=== PATIENT | female | born 1980 | race Caucasian/White ===

== ENCOUNTER 2020-09-15 09:05 | Day surgery (SDC) | payer OTHER, SELFPAY ==
[2020-09-11 12:58] VITALS: BMI 27.9
--- NOTE | 2020-09-13 15:09 | P.CONAN_ITS ---
Documented by User: Jayna Hauser 09/13/20 15:09 HPI - Anesthesia Eval Consult details Narrative: 39yo F for Upper Endoscopy and Colonoscopy [facility] Past Medical History Medical History GERD (gastroesophageal reflux disease) Surgical History Surgical History Hx of colonoscopy Social History Social History Smoking Status: Unknown if ever smoked Advance Directives: No (n/a) Advance Directives Information Provided: No Advance Directives on File: No Meds Allergies Allergy/AdvReac Type Severity Reaction Status Date / Time No Known Allergies Allergy Unverified 09/11/20 12:52 Home Medications Medication Instructions Recorded Confirmed Type hydrocortisone acetate 25 mg AL BID 09/11/20 09/11/20 History ibuprofen [Advil] 200 mg PO Q6H PRN 09/11/20 09/11/20 History multivitamin 1 cap PO DAILY 09/11/20 09/11/20 History omeprazole magnesium [Prilosec OTC] 20 mg PO DAILY PRN 09/11/20 09/11/20 History Exam Exam Date and Time: September 13, 2020 1509 Height,Weight and Vital Signs: Height 5 ft 4 in Weight 73.936 kg Assessment and Plan Assessment Anesthesia Assessment: Chart Reviewed Documented by User: Misty Abarca 09/15/20 09:45 [facility] Past Medical History Medical History GERD (gastroesophageal reflux disease) Surgical History Surgical History Hx of colonoscopy Social History Social History Smoking Status: Unknown if ever smoked Advance Directives: No (n/a) Advance Directives Information Provided: No Advance Directives on File: No Meds Allergies Allergy/AdvReac Type Severity Reaction Status Date / Time No Known Allergies Allergy Unverified 09/11/20 12:52 Home Medications Medication Instructions Recorded Confirmed Type hydrocortisone acetate 25 mg AL BID 09/11/20 09/11/20 History ibuprofen [Advil] 200 mg PO Q6H PRN 09/11/20 09/11/20 History multivitamin 1 cap PO DAILY 09/11/20 09/11/20 History omeprazole magnesium [Prilosec OTC] 20 mg PO DAILY PRN 09/11/20 09/11/20 History Exam Airway Mallampati Class: II TM Dist: >3cm Neck ROM: Full Loose/Missing/Broken Teeth: No Heart: RRR Lungs: CTA Assessment and Plan Assessment Anesthesia Assessment: Anesthesia Plan Discussed and Chart Reviewed Final Anesthetic Review NPO: Yes ASA Class: I Final Preanesthetic Review: Meds/Allgs Chart Reviewed, Consent Obtained/Reviewed and Anes Risks/Benef Reviewed Patient Risk: Low Procedure Risk: Intermediate Anesthetic Plan Anesthetic Plan: MAC: Disposition: Standard PACU
[2020-09-15 09:26] VITALS: BP 134/86; PULSE 77; RESP 16; TEMP 36.2; O2SAT 98
[2020-09-15 09:30] LABS: UPreg QC Valid YES; Urine Pregnancy NEGATIVE (NEGATIVE)
[2020-09-15] MEDS: Lactated Ringers 1,000 ML 100 ML IVCONT (09:36)
--- NOTE | 2020-09-15 09:47 | MHC.SHP ---
Pre-Procedural Eval Section A The patient is an INPATIENT: No Changes since office visit: No Cold of Flu in the past 2 weeks, No New Medical Problems, No Changes in Medication and No Patient answered all questions The History & Physical has been completed within 30 days and I have reviewed it.: Yes Section B Chief Complaint: Reflux,screening,rectal bleeding Allergies: Allergies Allergy/AdvReac Type Severity Reaction Status Date / Time No Known Allergies Allergy Unverified 09/11/20 12:52 Plan Patient has been examined and remains a candidate for the planned procedure
--- NOTE | 2020-09-15 10:12 | PM.OP ---
Brief Operative Note Date of Service: 09/15/20 Pre-op diagnosis: GERD, rectal bleeding Post-op diagnosis: same Procedure: egd colon Surgeon: Asaf Hilario Anesthesia: MAC Estimated blood loss (mL): 5 Pathology: other (egj, antral biopsies) Condition: stable Disposition: PACU
[2020-09-15 10:18] VITALS: BP 123/96; PULSE 76; RESP 16; TEMP 36.6; O2SAT 98
[2020-09-15 10:35] VITALS: BP 134/81; PULSE 77; RESP 16; TEMP 36.6; O2SAT 97
--- NOTE | 2020-09-15 11:30 | OP_ITS ---
SURGEON: Asaf Hilario MD INDICATIONS: 1. Gastroesophageal reflux disease. 2. Rectal bleeding. PREOPERATIVE DIAGNOSIS: POSTOPERATIVE DIAGNOSIS: PROCEDURE PERFORMED: 1. Upper endoscopy with biopsy. 2. Colonoscopy to the terminal ileum. ESTIMATED BLOOD LOSS: COMPLICATIONS: ANESTHESIA: ASSISTANTS: SPECIMENS: MEDICATIONS: Monitored anesthesia care. DESCRIPTION OF PROCEDURE: History and physical performed. The risks and benefits of the procedure were explained to the patient. Informed consent was obtained. The patient was placed in the left lateral decubitus position. The Olympus video gastroscope was introduced into the esophagus, stomach, and duodenum. Examination was performed and the scope was removed. She tolerated the procedure well and was repositioned for colonoscopy. A digital rectal exam was performed and was found to be normal. The Olympus pediatric video colonoscope was introduced into the rectum and advanced to the cecum without difficulty. The cecum was identified by transillumination, palpation, and identification of ileocecal valve. Examination was performed and the scope was removed. She tolerated both procedures well and was returned to recovery area in stable condition. FINDINGS: UPPER ENDOSCOPY: Esophagus: The esophagus was normal. There was no esophagitis. Biopsies were obtained from the EG junction to rule out Barnes's esophagus. Stomach: Stomach showed no evidence of masses, ulcers, or polyps. There was a small hiatal hernia. Antral biopsies were obtained to evaluate for H pylori. Duodenum: The bulb and second portion were normal. COLONOSCOPY: The terminal ileum was normal. The visualized colonic mucosa was within normal limits without evidence of masses or ulcers. No polyps were identified. The quality of the prep was good. Retroflexed examination showed internal hemorrhoids. There were external hemorrhoids noted on withdrawal of the scope. There was mild sigmoid diverticulosis with a few scattered diverticula in the right colon. IMPRESSION: 1. Gastroesophageal reflux disease. 2. Normal colonoscopy. RECOMMENDATIONS: 1. Follow up the biopsy results. 2. Repeat colonoscopy is recommended in 5 years because of family history. MD HAYDEE Mitchell/GALILEA / [id number]
--- NOTE | 2020-09-15 13:08 | HO.POSTANES ---
Post Anesthesia Evaluation Post Anesthesia Evaluation Vital Signs: Vital Signs Temp Pulse Resp BP Pulse Ox 09/15/20 10:35 97.8 F 77 16 134/81 97 09/15/20 10:18 97.8 F 76 16 123/96 H 98 09/15/20 09:26 97.1 F 77 16 134/86 98 Anesthesia: Monitored Mental Status: Awake Pain Control: Satisfactory Nausea/Vomiting: None Hydration: Adequate Anesthesia-Related Issues: No Anes. Related Issues
== END 2020-09-15 11:20 | disposition home or self-care (01) ==
PROVIDERS: Nurse Practitioner; PCP Nurse Practitioner Family; Visit Provider Internal Medicine Gastroenterology
PROC: (CPT 45378; principal; 2020-09-15 10:20)
DX: Z12.11 Encounter for screening for malignant neoplasm of colon (principal); Z80.0 Family history of malignant neoplasm of digestive organs; K57.30 Diverticulosis of large intestine without perforation or abscess without bleeding; K64.8 Other hemorrhoids; K64.4 Residual hemorrhoidal skin tags; K21.9 Gastro-esophageal reflux disease without esophagitis; K44.9 Diaphragmatic hernia without obstruction or gangrene; Z79.899 Other long term (current) drug therapy
CPT/HCPCS: 45378; 43239; 81025; 88305; 88342

== ENCOUNTER 2022-09-20 07:01 | Outpatient (REF) | payer OTHER, SELFPAY ==
[2022-09-20 07:34] LABS: INTERNATIONAL NORM RATIO 1.1 (0.9-1.1); Prothrombin Time 12.8 SEC (10.0-13.1)
[2022-09-20 07:36] LABS: Partial Thromboplastin Time 34.8 SEC (26.0-36.4)
[2022-09-20 07:39] LABS: Hematocrit 43.1 % (37.0-47.0); Hemoglobin 14.1 g/dl (12.0-16.0); Mean Corpuscular HGB Conc 32.7 g/dl (31.0-35.0); Mean Corpuscular Hemoglobin 31.1 pg (27.0-33.0); Mean Corpuscular Volume 94.9 fL (80.0-98.0); Mean Platelet Volume 10.8 fL (9.4-12.3); Platelet Count 262 X10*3/uL (160-400); Red Blood Count 4.54 X10*6/uL (4.20-5.50); Red Cell Distribution Width 11.7 % (11.0-16.0); White Blood Count 7.3 X10*3/uL (4.8-10.8)
[2022-09-20 08:09] LABS: Alanine Aminotransferase 172 U/L (0-31); Albumin Level 4.4 g/dL (3.5-5.0); Alkaline Phosphatase 51 U/L (39-117); Aspartate Amino Transferase 92 U/L (5-31); Bilirubin Direct 0.3 mg/dL (0.0-0.5); Bilirubin Total 0.8 mg/dL (0.0-1.0); Total Protein 7.2 g/dL (6.5-8.0)
== END 2022-09-20 07:02 | disposition home or self-care (01) ==
LOC: HO.LAB 07:01
PROVIDERS: PCP Family Medicine; Referring Provider Internal Medicine Endocrinology, Diabetes & Metabolism; Visit Provider Internal Medicine Gastroenterology
DX: R79.89 Other specified abnormal findings of blood chemistry (principal)
CPT/HCPCS: 36415; 80076; 85027; 85610; 85730

== ENCOUNTER 2022-09-23 06:59 | Day surgery (SDC) | payer OTHER, SELFPAY ==
--- NOTE | ~2022-09-23 | US_ITS ---
PROCEDURE: ULTRASOUND-GUIDED LIVER BIOPSY CLINICAL INFORMATION: Elevated LFTs. COMPARISON: None TECHNIQUE: Following explaining ultrasound-guided right hepatic lobe liver biopsy procedure, benefits and risk, a written consent was obtained. Patient was placed supine and preliminary ultrasound imaging was obtained through the liver. An intercostal approach along the right axillary line was selected and marked on the skin. The marked area was cleaned and draped in the usual sterile manner with 2% chlorhexidine solution. 1% lidocaine was injected at puncture site. Through a small skin incision a 20-gauge guide needle was advanced into the right hepatic lobe. Coaxially a 20-gauge biopsy gun was administered and a 3-pass biopsy was obtained under sterile ultrasound guidance. Postprocedure needle was removed and complete hemostasis achieved at puncture site. Repeat ultrasound revealed no hemorrhage. Patient tolerated procedure extremely well. Conscious sedation with Versed and fentanyl was administered during the exam and patient monitored for 15 minutes. FINDINGS: On preliminary ultrasound imaging there is mild echogenic liver. No focal lesion seen. The gallbladder is unremarkable. Subcostal ultrasound-guided intercostal right hepatic lobe biopsy performed with a 20-gauge needle. US/US biopsy liver IMPRESSION: Successful ultrasound-guided right hepatic lobe core biopsy performed.
[2022-09-23 07:11] VITALS: BMI 26.6
[2022-09-23] MEDS: Lidocaine HCl 1 % MPF 5 ML VIAL 10 ML SUBCUT (09:02)
[2022-09-23 09:10] VITALS: BP 108/63; PULSE 73; RESP 16; TEMP 36.9; O2SAT 95
[2022-09-23 09:25] VITALS: BP 119/74; PULSE 73; RESP 16; O2SAT 97
--- NOTE | 2022-09-23 09:27 | HE.PHANOTE ---
Went down to CT control room to witness waste. ROSSY Medina pulled versed and fentanyl for the patient, however, pyxis did not ask for waste. I watched Rossy Medina waste 1.5 ml of fentanyl and 1 ml of versed. thanks, herve
[2022-09-23] MEDS: Acetaminophen 325 MG TABLET 650 MG PO (09:28)
[2022-09-23 09:40] VITALS: BP 112/62; PULSE 65; RESP 14; O2SAT 98
[2022-09-23 09:55] VITALS: BP 115/60; PULSE 67; RESP 14; O2SAT 98
[2022-09-23 10:10] VITALS: BP 101/60; PULSE 64; RESP 14; O2SAT 98
[2022-09-23 10:25] VITALS: BP 103/57; PULSE 97; RESP 14; TEMP 37.7; O2SAT 98
== END 2022-09-23 11:02 | disposition home or self-care (01) ==
PROVIDERS: Radiology Diagnostic Radiology; PCP Family Medicine; Visit Provider Radiology Diagnostic Radiology
DX: R79.89 Other specified abnormal findings of blood chemistry (principal); K75.81 Nonalcoholic steatohepatitis (NASH); K21.9 Gastro-esophageal reflux disease without esophagitis; Z79.899 Other long term (current) drug therapy; Z79.1 Long term (current) use of non-steroidal anti-inflammatories (NSAID)
CPT/HCPCS: 47000; 76942; 88307; 88313; 99152; J2250; J3010

== ENCOUNTER 2022-10-11 08:42 | Day surgery (SDC) | payer OTHER, SELFPAY ==
--- NOTE | 2022-10-09 14:35 | HO.ANESPROP2 ---
Documented by User: Jayna Hauser NP 10/09/22 14:36 HPI - Anesthesia Eval Consult details Narrative: 41yo F for Colonoscopy [facility] Past Medical History Medical History Anxiety GERD (gastroesophageal reflux disease) Surgical History Surgical History Hx of colonoscopy Hx of esophagogastroduodenoscopy Social History Social History Patient Tobacco Use Status: Never used Tobacco Use of substances other than those prescribed or required for medical reasons: No Are you DNR?: No Advance Directives: No Advance Directives Information Provided: Yes Meds Allergies Allergy/AdvReac Type Severity Reaction Status Date / Time No Known Allergies Allergy Verified 09/23/22 07:10 Home Medications Medication Instructions Recorded Confirmed Last Taken Type hydrocortisone acetate 25 mg 25 mg LA BID 09/11/20 09/11/20 Unknown History rectal suppository ibuprofen 200 mg tablet (Advil) 200 mg PO Q6H PRN Pain 09/11/20 09/11/20 09/27/22 History multivitamin 1 cap PO DAILY 09/11/20 09/11/20 Unknown History lansoprazole 15 mg capsule,delayed 15 mg PO DAILY 10/10/22 10/10/22 Unknown History release rosuvastatin 5 mg tablet 1 tab PO DAILY 10/11/22 10/11/22 Unknown History Exam Exam Date and Time: October 09, 2022 1435 Pertinent Lab Results Pertinent Lab Results: Laboratory Tests 09/20/22 07:05 WBC 7.3 Hgb 14.1 Hct 43.1 Plt Count 262 Assessment and Plan Assessment Anesthesia Assessment: Chart Reviewed Documented by User: Sha Lezama MD 10/11/22 10:55 [facility] Past Medical History Medical History Anxiety GERD (gastroesophageal reflux disease) Functional capacity: independent ambulation Family History Family history of problems with anesthesia: No Surgical History Surgical History Hx of colonoscopy Hx of esophagogastroduodenoscopy History of Problems with Anesthesia: No Social History Social History Patient Tobacco Use Status: Never used Tobacco Use of substances other than those prescribed or required for medical reasons: No Are you DNR?: No Advance Directives: No Advance Directives Information Provided: Yes Meds Allergies Allergy/AdvReac Type Severity Reaction Status Date / Time No Known Allergies Allergy Verified 09/23/22 07:10 Home Medications Medication Instructions Recorded Confirmed Last Taken Type hydrocortisone acetate 25 mg 25 mg LA BID 09/11/20 09/11/20 Unknown History rectal suppository ibuprofen 200 mg tablet (Advil) 200 mg PO Q6H PRN Pain 09/11/20 09/11/20 09/27/22 History multivitamin 1 cap PO DAILY 09/11/20 09/11/20 Unknown History lansoprazole 15 mg capsule,delayed 15 mg PO DAILY 10/10/22 10/10/22 Unknown History release rosuvastatin 5 mg tablet 1 tab PO DAILY 10/11/22 10/11/22 Unknown History Exam Airway Mallampati Class: III TM Dist: >3cm Neck ROM: Full Loose/Missing/Broken Teeth: Yes Heart: S1,S2 Lungs: b/l breath sounds Assessment and Plan Assessment Anesthesia Assessment: Anesthesia Plan Discussed Final Anesthetic Review Family History of Problems with Anesthesia: No History of Problems with Anesthesia: No NPO: Yes ASA Class: II Final Preanesthetic Review: Meds/Allgs Chart Reviewed, Consent Obtained/Reviewed and Anes Risks/Benef Reviewed Patient Risk: Intermediate Procedure Risk: Intermediate Anesthetic Plan Anesthetic Plan: MAC: Disposition: Standard PACU
[2022-10-11 09:01] VITALS: BMI 26.1
[2022-10-11 09:07] VITALS: BP 128/78; PULSE 95; RESP 18; TEMP 37.1; O2SAT 98
[2022-10-11 09:10] VITALS: BMI 26.1
[2022-10-11 09:15] LABS: UPreg QC Valid YES; Urine Pregnancy NEGATIVE (NEGATIVE)
[2022-10-11] MEDS: Lactated Ringers 1,000 ML 100 ML IVCONT (09:28)
--- NOTE | 2022-10-11 09:54 | MHC.SHP ---
Pre-Procedural Eval Section A Date of Service: 10/11/22 Section B Chief Complaint: screening Details of Present Illness: see H&P no changes Relevant Family History (Specify if Yes): No Relevant Social History: None Present Medications: see Short Stay Collaborative assessment Medical History: No relevant PMH Allergies: Allergies Allergy/AdvReac Type Severity Reaction Status Date / Time No Known Allergies Allergy Verified 09/23/22 07:10 Review of Systems Sugical H&P ROS: Negative: Constitution, Cardiovascular, Respiratory, Neurological, Psychiatric, Hem-Onc, Allergic/Immunologic, Gastrointestinal, Genitourinary, Musculoskeletal, Integumentary, Endocrine and Eyes/Ears/Nose/Throat Exam Surgical H&P Exam: Normal: HEENT, Normal: Heart, Normal: Lungs, Normal: Extremities, Normal: Abdomen, Normal: Skin and Normal: Neurological Plan Diagnosis/Plan: Unchanged I have reviewed the history and physical and performed a pertinent physical examination on my patient. No changes have occurred unless specified.
[2022-10-11 10:29] VITALS: BP 90/46; PULSE 74; RESP 16; TEMP 37.1; O2SAT 100
--- NOTE | 2022-10-11 10:31 | P.BOP_ITS ---
Brief Operative Note Date of Service: 10/11/22 Pre-op diagnosis: screening Post-op diagnosis: same Surgeon: Asaf Hilario Anesthesia: MAC Was an Commodity Director used for this Procedure?: No Estimated blood loss (mL): 2 Pathology: other Condition: stable Disposition: PACU
[2022-10-11 10:44] VITALS: BP 105/67; PULSE 75; RESP 18; O2SAT 99
[2022-10-11 10:59] VITALS: BP 105/67; PULSE 69; RESP 18; TEMP 36.8; O2SAT 99
--- NOTE | 2022-10-11 21:20 | OP_ITS ---
SURGEON: Asaf Hilario MD INDICATIONS: Colon cancer screening. PREOPERATIVE DIAGNOSIS: POSTOPERATIVE DIAGNOSIS: PROCEDURE PERFORMED: Colonoscopy to the terminal ileum with biopsy. ESTIMATED BLOOD LOSS: COMPLICATIONS: ANESTHESIA: Monitored anesthesia care. ASSISTANTS: SPECIMENS: DESCRIPTION OF PROCEDURE: Date: 10/11/22. History and physical was performed. The risks and benefits of the procedure were explained to the patient. Informed consent was obtained. The patient was placed in a left lateral decubitus position. A digital rectal exam was performed and was found to be normal. The Olympus pediatric video colonoscope was introduced into the rectum and advanced to the cecum without difficulty. The cecum was identified by transillumination, palpation, and identification of ileocecal valve. Examination was performed. The scope was removed. She tolerated the procedure well and was taken to the recovery area in stable condition. FINDINGS: The terminal ileum was normal. The visualized colonic mucosa was normal. The quality of prep was good. At 65 cm was a less than 5 mm sessile polyp, which was removed with biopsy forceps. No other polyps were identified. There was moderate sigmoid diverticulosis. Retroflexed examination showed small to moderate-sized internal hemorrhoids. IMPRESSION: Colon polyp. RECOMMENDATION: Follow up the biopsy results. MD HAYDEE Mitchell/GALILEA / [id number] MTDD
== END 2022-10-11 11:34 | disposition home or self-care (01) ==
PROVIDERS: Nurse Practitioner; PCP Family Medicine; Visit Provider Internal Medicine Gastroenterology
PROC: 0DJD8ZZ Inspection of Lower Intestinal Tract, Via Natural or Artificial Opening Endoscopic (ICD-10-PCS; CPT 45378; principal; 2022-10-11 09:50)
DX: Z12.11 Encounter for screening for malignant neoplasm of colon (principal); D12.6 Benign neoplasm of colon, unspecified; K57.30 Diverticulosis of large intestine without perforation or abscess without bleeding; K64.8 Other hemorrhoids; Z80.0 Family history of malignant neoplasm of digestive organs
CPT/HCPCS: 45380; 81025; 88305

== ENCOUNTER 2023-12-17 11:54 | Day surgery (SDC) | payer OTHER, SELFPAY ==
[2023-12-15 14:29] VITALS: BMI 28.6
[2023-12-17 12:26] VITALS: BP 126/85; PULSE 76; RESP 18; TEMP 36.2; O2SAT 97; BMI 28.1
[2023-12-17 12:27] LABS: UPreg QC Valid YES; Urine Pregnancy NEGATIVE (NEGATIVE)
--- NOTE | 2023-12-17 12:41 | HO.ANESPROP2 ---
HPI - Anesthesia Eval Consult details Narrative: for colonoscopy Strong FHx of colon ca. PMFSH Past Medical History Medical History Anxiety GERD (gastroesophageal reflux disease) Patient : No Family History Family history of problems with anesthesia: No Surgical History Surgical History (Updated 12/15/23 @ 14:30 by Sofia Mcgowan, INES) Hx of esophagogastroduodenoscopy Hx of colonoscopy History of Problems with Anesthesia: No Social History Social History Patient Tobacco Use Status: Never used Tobacco Use of substances other than those prescribed or required for medical reasons: No Advance Directives: No Advance Directives Information Provided: Yes Meds Allergies Allergy/AdvReac Type Severity Reaction Status Date / Time No Known Allergies Allergy Verified 09/23/22 07:10 Home Medications Medication Instructions Recorded Confirmed Last Taken Type ibuprofen 200 mg tablet (Advil) 200 mg PO Q6H PRN Pain 09/11/20 12/17/23 09/27/22 History multivitamin 1 cap PO DAILY 09/11/20 12/17/23 Unknown History lansoprazole 15 mg capsule,delayed 15 mg PO DAILY PRN reflux 10/10/22 12/17/23 Unknown History release rosuvastatin 5 mg tablet 1 tab PO DAILY 10/11/22 12/17/23 Unknown History Exam Height,Weight and Vital Signs: Height 5 ft 4 in Weight 74.389 kg Last Vital Signs Temp 97.2 F 12/17/23 12:26 Pulse 76 12/17/23 12:26 Resp 18 12/17/23 12:26 BP 126/85 12/17/23 12:26 Pulse Ox 97 12/17/23 12:26 O2 Del Method Room Air 12/17/23 12:26 Pertinent Lab Results Pertinent Lab Results: Laboratory Tests 12/17/23 12:12 Urine Test NEGATIVE Airway Mallampati Class: II TM Dist: >3cm Neck ROM: Full Loose/Missing/Broken Teeth: No Heart: ok Lungs: ok Assessment and Plan Assessment Anesthesia Assessment: Anesthesia Plan Discussed and Chart Reviewed Final Anesthetic Review Family History of Problems with Anesthesia: No History of Problems with Anesthesia: No NPO: Yes ASA Class: II Final Preanesthetic Review: No Changes in Pt Med Stat, Meds/Allgs Chart Reviewed, Consent Obtained/Reviewed and Anes Risks/Benef Reviewed Patient Risk: Low Procedure Risk: Low Anesthetic Plan Anesthetic Plan: MAC: and Agree w/ Assess. and Plan Disposition: Standard PACU
[2023-12-17] MEDS: Lactated Ringers 1,000 ML 50 ML IVCONT (12:45)
--- NOTE | 2023-12-17 12:47 | MHC.SHP ---
Pre-Procedural Eval Section A - 24 Hr Update-Section A only Date of Service: 12/17/23 The patient is an INPATIENT: No Changes since office visit: No Cold of Flu in the past 2 weeks, No New Medical Problems, No Changes in Medication and No Patient answered all questions The patient has been examined within 24 hours of the surgical procedure. The History & Physical has been completed within 30 days and I have reviewed it.: Yes Section B - Complete if H&P > 30 days Chief Complaint: rectal bleeding,screening Allergies: Allergies Allergy/AdvReac Type Severity Reaction Status Date / Time No Known Allergies Allergy Verified 09/23/22 07:10 Plan I have reviewed the history and physical and performed a pertinent physical examination on my patient. No changes have occurred unless specified. Time Spent With Patient Time: Total time managing care of this patient today ____ minutes.
[2023-12-17 13:24] VITALS: BP 94/50; PULSE 80; RESP 16; TEMP 36.5; O2SAT 97
[2023-12-17 13:39] VITALS: BP 105/67; PULSE 61; RESP 16; O2SAT 98
[2023-12-17 13:54] VITALS: BP 102/72; PULSE 85; RESP 16; TEMP 36.6; O2SAT 97
--- NOTE | 2023-12-17 14:05 | OP_ITS ---
DATE OF SERVICE: 12/17/2023 SURGEON: Asaf Hilario MD INDICATIONS: Rectal bleeding. PREOPERATIVE DIAGNOSIS: POSTOPERATIVE DIAGNOSIS: PROCEDURE PERFORMED: Colonoscopy to the terminal ileum. ESTIMATED BLOOD LOSS: COMPLICATIONS: ANESTHESIA: Monitored anesthesia care. ASSISTANTS: SPECIMENS: DESCRIPTION OF PROCEDURE: History and physical was performed. The risks and benefits of the procedure were explained to the patient. Informed consent was obtained. The patient was placed in the left lateral decubitus position. A digital rectal exam was performed and was found to be normal. The Olympus pediatric video colonoscope was introduced into the rectum and advanced to the cecum. The cecum was identified by transillumination, palpation, and identification of ileocecal valve. Examination was performed. The scope was removed. She tolerated the procedure well and was returned to recovery area in stable condition. FINDINGS: The terminal ileum was examined and appeared normal. The visualized colonic mucosa was normal. The quality of the prep was good. No polyps were identified. There was moderate diverticulosis involving the left colon. Retroflexed examination showed some internal hemorrhoids. IMPRESSION: Normal colonoscopy. RECOMMENDATION: 1. Follow up as needed. 2. Repeat colonoscopy is recommended in 5 years for high risk individuals. MD HAYDEE Mitchell/GALILEA / [id number]
== END 2023-12-17 14:29 | disposition home or self-care (01) ==
PROVIDERS: Anesthesiology; PCP Nurse Practitioner Family; Visit Provider Internal Medicine Gastroenterology
PROC: 0DJD8ZZ Inspection of Lower Intestinal Tract, Via Natural or Artificial Opening Endoscopic (ICD-10-PCS; CPT 45378; principal; 2023-12-17 13:00)
DX: Z12.11 Encounter for screening for malignant neoplasm of colon (principal); K62.5 Hemorrhage of anus and rectum; Z86.010 Personal history of colon polyps; Z80.0 Family history of malignant neoplasm of digestive organs
CPT/HCPCS: 45378; 81025; J2704

== ENCOUNTER → 2024-12-03 08:25 | Outpatient (BNV) | payer OTHER, SELFPAY | PROVIDERS: PCP Nurse Practitioner Family; Visit Provider Radiology Diagnostic Radiology | DX: R74.01 Elevation of levels of liver transaminase levels (principal) | CPT/HCPCS: 76700 ==

== ENCOUNTER 2025-02-11 07:55 | Day surgery (SDC) | payer OTHER, SELFPAY ==
[2025-02-09 13:19] VITALS: BMI 26.4
--- NOTE | 2025-02-09 14:18 | P.CONAN_ITS ---
Documented by User: Jayna Hauser NP 02/09/25 14:20 HPI - Anesthesia Eval Consult details Narrative: 44yo F for Colonoscopy [facility] Past Medical History Medical History Hyperlipidemia Steatohepatitis Anxiety GERD (gastroesophageal reflux disease) Family History Family history of problems with anesthesia: No Surgical History Surgical History History of liver biopsy Hx of esophagogastroduodenoscopy Hx of colonoscopy History of Problems with Anesthesia: No Social History Social History Patient Tobacco Use Status: Never used Tobacco Use of substances other than those prescribed or required for medical reasons: No Are you DNR?: No Advance Directives: No Advance Directives Information Provided: Yes Meds Allergies Allergy/AdvReac Type Severity Reaction Status Date / Time No Known Allergies Allergy Verified 02/11/25 08:44 Home Medications ?Medication ?Instructions ?Recorded ?Confirmed ?Last Taken ?Type ibuprofen 200 mg tablet (Advil) 200 mg PO Q6H PRN Pain 09/11/20 02/11/25 09/27/22 History lansoprazole 15 mg capsule,delayed 15 mg PO DAILY PRN reflux 10/10/22 02/11/25 Unknown History release rosuvastatin 5 mg tablet 1 tab PO DAILY 10/11/22 02/11/25 Unknown History multivitamin 1 tab PO DAILY 02/09/25 02/11/25 Unknown History Exam Height,Weight and Vital Signs: Height 5 ft 4 in Weight 69.853 kg Assessment and Plan Assessment Anesthesia Assessment: Chart Reviewed Final Anesthetic Review Family History of Problems with Anesthesia: No History of Problems with Anesthesia: No Documented by User: Marilyn Estevez MD 02/11/25 09:27 [facility] Past Medical History Medical History Hyperlipidemia Steatohepatitis Anxiety GERD (gastroesophageal reflux disease) Family History Family history of problems with anesthesia: No Surgical History Surgical History History of liver biopsy Hx of esophagogastroduodenoscopy Hx of colonoscopy History of Problems with Anesthesia: No Social History Social History Patient Tobacco Use Status: Never used Tobacco Use of substances other than those prescribed or required for medical reasons: No Are you DNR?: No Advance Directives: No Advance Directives Information Provided: Yes Meds Allergies Allergy/AdvReac Type Severity Reaction Status Date / Time No Known Allergies Allergy Verified 02/11/25 08:44 Home Medications ?Medication ?Instructions ?Recorded ?Confirmed ?Last Taken ?Type ibuprofen 200 mg tablet (Advil) 200 mg PO Q6H PRN Pain 09/11/20 02/11/25 09/27/22 History lansoprazole 15 mg capsule,delayed 15 mg PO DAILY PRN reflux 10/10/22 02/11/25 Unknown History release rosuvastatin 5 mg tablet 1 tab PO DAILY 10/11/22 02/11/25 Unknown History multivitamin 1 tab PO DAILY 02/09/25 02/11/25 Unknown History Exam Height,Weight and Vital Signs: Height 5 ft 4 in Weight 69.853 kg Vital Signs Temp Pulse Resp BP Pulse Ox O2 Del Method 02/11/25 08:48 97.8 F 75 16 128/73 100 Room Air Pertinent Lab Results Pertinent Lab Results: Lab Results 02/11/25 Range/Units 08:45 Urine Test NEGATIVE (NEGATIVE) Airway Mallampati Class: II TM Dist: >3cm Neck ROM: Full Loose/Missing/Broken Teeth: No Heart: RRR Lungs: CTAB Assessment and Plan Assessment Anesthesia Assessment: Anesthesia Plan Discussed and Chart Reviewed Final Anesthetic Review Family History of Problems with Anesthesia: No History of Problems with Anesthesia: No NPO: Yes ASA Class: II Final Preanesthetic Review: No Changes in Pt Med Stat, Meds/Allgs Chart Reviewed, Consent Obtained/Reviewed and Anes Risks/Benef Reviewed Patient Risk: Low Procedure Risk: Low Assessment/Block/Sedation in SS: Assess/Block/Sedation-SS Anesthetic Plan Anesthetic Plan: TIVA Disposition: Standard PACU
[2025-02-11 08:48] VITALS: BP 128/73; PULSE 75; RESP 16; TEMP 36.6; O2SAT 100; BMI 26.6
[2025-02-11 09:01] LABS: UPreg QC Valid YES
[2025-02-11 09:02] LABS: Urine Pregnancy NEGATIVE (NEGATIVE)
[2025-02-11] MEDS: Lactated Ringers 1,000 ML 100 ML IVCONT (09:13)
--- NOTE | 2025-02-11 10:08 | MHC.SHP ---
Pre-Procedural Eval Section A - 24 Hr Update-Section A only Date of Service: 02/11/25 Section B - Complete if H&P > 30 days Chief Complaint: Hemorrhage of anus and rectum Details of Present Illness: see H&P no changes Relevant Family History (Specify if Yes): Yes Relevant Social History: None Present Medications: see Short Stay Collaborative assessment Medical History: No relevant PMH History of Previous Operations: No relevant previous surgery Allergies: Allergies Allergy/AdvReac Type Severity Reaction Status Date / Time No Known Allergies Allergy Verified 02/11/25 08:44 Review of Systems Sugical H&P ROS: Negative: Constitution, Cardiovascular, Respiratory, Neurological, Psychiatric, Hem-Onc, Allergic/Immunologic, Gastrointestinal, Genitourinary, Musculoskeletal, Integumentary, Endocrine and Eyes/Ears/Nose/Throat Exam Surgical H&P Exam: Normal: HEENT, Normal: Heart, Normal: Lungs, Normal: Extremities, Normal: Abdomen, Normal: Skin and Normal: Neurological Plan Diagnosis/Plan: Unchanged I have reviewed the history and physical and performed a pertinent physical examination on my patient. No changes have occurred unless specified. Time Spent With Patient Time: Total time managing care of this patient today ____ minutes.
[2025-02-11 10:47] VITALS: BP 101/62; PULSE 83; RESP 18; TEMP 37.1; O2SAT 100
--- NOTE | 2025-02-11 10:48 | P.BOP_ITS ---
Brief Operative Note Date of Service: 02/11/25 Pre-op diagnosis: rectal bleeding Procedure: colonoscopy Surgeon: Asaf Hilario MD Anesthesia: MAC Was an Blender Machine Operator used for this Procedure?: No Estimated blood loss (mL): 2 Pathology: other Condition: stable Disposition: PACU
[2025-02-11 11:02] VITALS: PULSE 86; RESP 18; TEMP 36.6; O2SAT 100
--- NOTE | 2025-02-11 11:06 | OP_ITS ---
DATE OF SERVICE: 02/11/2025 SURGEON: Asaf Hilario MD INDICATIONS: Rectal bleeding. PREOPERATIVE DIAGNOSIS: POSTOPERATIVE DIAGNOSIS: PROCEDURE PERFORMED: Colonoscopy to the terminal ileum with biopsy. ESTIMATED BLOOD LOSS: COMPLICATIONS: ANESTHESIA: Monitored anesthesia care. ASSISTANTS: SPECIMENS: DESCRIPTION OF PROCEDURE: A history and physical were performed. The risks and benefits of the procedure were explained to the patient. Informed consent was obtained. The patient was placed in the left lateral decubitus position. A digital rectal exam was performed and was found to be normal. The Olympus pediatric videocolonoscope was introduced into the rectum and advanced to the cecum. The cecum was identified by transillumination, palpation, and identification of the ileocecal valve. Examination was performed. The scope was removed. She tolerated the procedure well and was returned to recovery area in stable condition. FINDINGS: The terminal ileum was examined and appeared normal. The visualized colonic mucosa was normal. The quality of the prep was good at 25 cm from the anal verge. There was a less than 5 mm sessile polyp. This was removed with biopsy forceps. There was mild sigmoid diverticulosis. Retroflexed examination showed small to moderate-sized internal hemorrhoids. IMPRESSION: Colon polyp. RECOMMENDATION: Follow up biopsy results. MD HAYDEE Mitchell/MODL / [id number]
== END 2025-02-11 11:42 | disposition home or self-care (01) ==
PROVIDERS: Nurse Practitioner; PCP Nurse Practitioner Family; Visit Provider Internal Medicine Gastroenterology
PROC: 0DJD8ZZ Inspection of Lower Intestinal Tract, Via Natural or Artificial Opening Endoscopic (ICD-10-PCS; CPT 45378; principal; 2025-02-11 10:00)
DX: K62.5 Hemorrhage of anus and rectum (principal); Z86.0101 Personal history of adenomatous and serrated colon polyps; Z80.0 Family history of malignant neoplasm of digestive organs; D12.5 Benign neoplasm of sigmoid colon; K57.30 Diverticulosis of large intestine without perforation or abscess without bleeding; K64.8 Other hemorrhoids; K21.9 Gastro-esophageal reflux disease without esophagitis; K75.81 Nonalcoholic steatohepatitis (NASH); E78.5 Hyperlipidemia, unspecified; F41.9 Anxiety disorder, unspecified; Z79.899 Other long term (current) drug therapy; Z79.1 Long term (current) use of non-steroidal anti-inflammatories (NSAID)
CPT/HCPCS: 45380; 81025; 88305; J2003; J2704